=== PATIENT | female | born 1980 | race Caucasian/White ===

== ENCOUNTER 2024-06-21 14:19 | Inpatient (IN) | payer OTHER ==
[~2024-06-21] VITALS: Ht 162.6 cm; Wt 54.4 kg
[2024-06-21 16:25] LABS: ANION GAP 7 mmol/L (8-16); CALCIUM, TOTAL 9.7 mg/dL (8.8-10.5); CARBON DIOXIDE 30 mmol/L (22-29); CHLORIDE 100 mmol/L (98-107); GLOMERULAR FILTR. RATE CALC > 60 mL/min (>60); GLUCOSE,RANDOM 76 mg/dL (70-110); POTASSIUM 3.5 mmol/L (3.5-5.1); SODIUM SERUM 137 mmol/L (136-145); UREA NITROGEN, BLOOD 11 mg/dL (7-18)
[2024-06-21 16:28] LABS: ALCOHOL, BLOOD (SERUM) < 3 mg/dL (0-10)
[2024-06-21 16:33] LABS: APPEARANCE,URINE HAZY (CLEAR); BILIRUBIN,URINE NEGATIVE (NEGATIVE); COLOR,URINE YELLOW (YELLOW); GLUCOSE, URINE (UA) NEGATIVE (NEGATIVE); KETONES,URINE NEGATIVE (NEGATIVE); LEUKOCYTE ESTERASE ,URINE MODERATE (NEGATIVE); NITRATE,URINE NEGATIVE (NEGATIVE); OCCULT BLOOD,URINE NEGATIVE (NEGATIVE); PROTEIN,URINE TRACE mg/dL (NEGATIVE); SPECIFIC GRAVITIY, URINE 1.019 (1.003-1.030)
[2024-06-21 16:40] LABS: BASOPHILS % (AUTO) 1.9 % (0.0-2.0); EOSINOPHILS % (AUTO) 2.5 % (1.0-6.0); HEMATOCRIT 46.2 % (36-46); HEMOGLOBIN 15.3 g/dL (12.0-16.0); LYMPHOCYTES # (AUTO) 1.3 K/uL (1.0-4.8); LYMPHOCYTES % (AUTO) 29.3 % (22.0-44.0); MEAN CORPUSCULAR HEMOGLOBIN 32.1 pg (26.0-34.0); MEAN CORPUSCULAR VOLUME 97 fL (80-100); MONOCYTES # (AUTO) 0.7 K/uL (0.1-1.0); MONOCYTES % (AUTO) 15.5 % (2.0-9.0); NEUTROPHILS # (AUTO) 2.3 K/uL (1.8-7.7); NEUTROPHILS % (AUTO) 50.8 % (40.0-70.0); PLATELET COUNT (AUTO) 230 K/uL (150-450); RED BLOOD CELL COUNT(AUTO) 4.76 MIL/uL (4.00-5.20); RED CELL DISTRIBUTION WIDTH 14.7 % (11.5-14.5); WHITE BLOOD COUNT (AUTO) 4.5 K/uL (4.5-11.0)
[2024-06-21 16:40] LABS: ALCOHOL, URINE DRUG SCREEN NEGATIVE (NEGATIVE); AMPHET/METH SCREEN,URINE POSITIVE (NEGATIVE); BARBITURATE SCREEN, URINE NEGATIVE (NEGATIVE); BENZODIAZEPINES SCREEN,URINE NEGATIVE (NEGATIVE); CANNABINOID SCREEN,URINE POSITIVE (NEGATIVE); COCAINE SCREEN,URINE NEGATIVE (NEGATIVE); METHADONE SCREEN, URINE NEGATIVE (NEGATIVE); OPIATE SCREEN,URINE NEGATIVE (NEGATIVE); PHENCYCLIDINE SCREEN,URINE NEGATIVE (NEGATIVE)
[2024-06-21 16:45] LABS: BACTERIA,URINE Many /HPF (None Seen); RBC,URINE None Seen /HPF (0-2)
[2024-06-21 16:46] LABS: AMORPHOUS SEDIMENT,UR Moderate /LPF (None Seen)
[2024-06-21 16:50] LABS: ALANINE AMINOTRANSFERASE 78 U/L (12-78); ALBUMIN 4.2 g/dL (3.4-5.0); ALKALINE PHOSPHATASE 151 U/L (46-116); ASPARTATE AMINOTRANSFERASE 123 U/L (15-37); BILIRUBIN,TOTAL 0.6 mg/dL (0.1-1.0); CREATINE KINASE, TOTAL ONLY 91 U/L (26-192); TOTAL PROTEIN, SERUM 8.7 g/dL (6.4-8.2)
[2024-06-21 17:06] LABS: TROPONIN I-HIGH SENSITIVITY Less Than 4 ng/L (<51)
[2024-06-21] MEDS ORDERED: LOPERAMIDE HCL 2 MG CAPSULE PO PRN (19:30)
[2024-06-21] MEDS ORDERED: LORazepam 2 MG/ML VIAL IVP PRN (19:30)
[2024-06-21] MEDS ORDERED: DICYCLOMINE HCL 10 MG CAPSULE PO PRN (19:30)
[2024-06-21] MEDS ORDERED: METOCLOPRAMIDE HCL 5 MG/ML 2 ML VIAL IVP PRN (19:30)
[2024-06-21 21:29] VITALS: BP 111/73; PULSE 70; RESP 20; TEMP 98; O2SAT 98
[2024-06-21] MEDS: TEMAZEPAM 15 MG CAPSULE PO SCH (23:06)
[2024-06-22] MEDS: INFLUENZA VIRUS VACCINE TVS (6MO+) 2024-25/PF 45 MCG/0.5 ML SYRINGE IM. ONE (03:03)
[2024-06-22 06:19] VITALS: BP 106/68; PULSE 68; RESP 18; TEMP 97.9; O2SAT 100
[2024-06-22 08:10] VITALS: BP 119/80; PULSE 75; RESP 19; TEMP 97.5; O2SAT 99
[2024-06-22 19:49] VITALS: BP 106/69; PULSE 75; RESP 18; TEMP 98.5; O2SAT 98
[2024-06-23 04:38] VITALS: BP 107/66; PULSE 71; RESP 18; TEMP 98.5; O2SAT 99
[2024-06-23 08:30] VITALS: BP 112/68; PULSE 68; RESP 18; TEMP 98.3; O2SAT 98
[2024-06-23] MEDS ORDERED: LOPE-232 PO (10:46)
== END 2024-06-23 15:30 | DRG 690 ==
LOC: EMS 14:19 → EDH 19:33 → 6S 21:15
PROVIDERS: ADMIT Internal Medicine; ATTEND Internal Medicine
DX: N39.0 Urinary tract infection, site not specified (principal); F15.23 Other stimulant dependence with withdrawal; E44.0 Moderate protein-calorie malnutrition; B18.2 Chronic viral hepatitis C; Z68.20 Body mass index [BMI] 20.0-20.9, adult
CPT/HCPCS: 71045; 80053; 80307; 81001; 82550; 84484; 85025; 87077; 87086; 87186; 93005; 99285; G0480; 36415-L1; 36415-TC